=== PATIENT | female | born 1970 | race Caucasian/White ===

== ENCOUNTER 2022-02-12 21:06 | Emergency (ER) | payer MEDICAID ==
[~2022-02-12] VITALS: Ht 167.6 cm; Wt 80.7 kg
[2022-02-12 21:50] VITALS: BP 157/85
[2022-02-13] MEDS ORDERED: ACETAMINOPHEN 325 MG TAB PO ONE (00:30)
== END 2022-02-13 00:48 | disposition left against medical advice (07) ==
LOC: ER 21:07
DX: R10.32 Left lower quadrant pain (principal); R11.0 Nausea; R42 Dizziness and giddiness; Z53.21 Procedure and treatment not carried out due to patient leaving prior to being seen by health care provider

== ENCOUNTER → 2022-02-12 21:19 | Emergency (ER) | payer MEDICAID | END | disposition left against medical advice (07) | LOC: ER 21:19 | DX: R10.32 Left lower quadrant pain (principal); Z53.21 Procedure and treatment not carried out due to patient leaving prior to being seen by health care provider ==

== ENCOUNTER 2025-09-12 01:45 | Inpatient (IN) | payer MEDICAID ==
[2025-09-12] VITALS (7 sets, daily range): BP systolic 123–142; BP diastolic 69–95; PULSE 72–87; RESP 17–19; TEMP 97.9–98.2; O2SAT 92–96
[~2025-09-12] VITALS: Ht 167.6 cm; Wt 77.9 kg
--- NOTE | 2025-09-12 02:02 | ECG ---
[facility] Test Date: 2025-09-12 Test Time: 01:53:13 Pat Name: MAXINE MERCHANT Department: ED Room: [address] [place] [address] Gender: F Product Lead: PAUL : 1970 Requested By: KY MCCOY Order Number: [id number] Reading MD: Jay Benavides Measurements Intervals [place] Rate: 87 P: 75 MO: 169 QRS: 82 QRSD: 97 T: 70 QT: 363 QTc: 437 Interpretive Statements Sinus rhythm Biatrial enlargement Minimal ST depression, inferior leads Electronically Signed On 09-12-2025 15:47:19 PST by Jay Benavides Please click the below link to view image of tracing.
--- NOTE | 2025-09-12 02:34 | ED.PDOC ---
HPI Comments HPI: Poor Historian. 55-year-old female presents to emergency department for evaluation of proximally 3 hours onset of right-sided chest pain radiating to the right armpit and right scapula. Denies any fall or trauma or injuries. Pain is constant. No alleviating or precipitating factors. No other associated symptoms. Patient says she never had any cardiac evaluation ever in the past. Past Medical History: Hypertension, active tobacco abuse Past Surgical History: Cholecystectomy, hysterectomy REVIEW OF SYSTEMS: CONSTITUTIONAL: Denies acute: fever, diaphoresis, chills, generalized weakness. HEAD: Denies acute: headache, photophobia Eyes: Denies acute: Double vision, vision loss, eye pain, eye discharge. EARS: Denies acute: tinnitus, hearing loss, ear discharge, ear pain, THROAT: Denies acute: sore throat, swelling, difficulty swallowing , pain with swallowing, change in voice. NECK: Denies acute: neck pain, neck swelling, stiff neck. HEART: Denies acute : , palpitations, LUNGS: Denies acute: SOB, wheezing, cough, hemoptysis ABDOMEN: Denies acute: abdominal pain, Nausea, Vomiting, diarrhea, melena , hematemesis, hematochezia SKIN: Denies acute: rash, redness, lesions, itchiness. EXTREMITIES: Denies acute: calf pain, numbness, tingling, weakness, denies pain in extremity. Denies acute: Low back pain. Neuro: Denies acute: focal neurological deficit, motor or sensory focal neurological deficit, tremors, seizure like activity, confusion, dizziness, change in mental status, loss of bowel or bladder function, cauda equina like symptoms. : Denies acute: dysuria, hematuria, flank pain, increase in urinary frequency. PSYCH: Denies acute: hallucination, suicidal ideation, homicidal ideation. FEMALE: Denies acute: abnormal vaginal bleeding, foul odor, unusual discharge. PHYSICAL EXAM: General: ---moderate----acute distress, awake and alert. Head: normocephalic, atraumatic. No raccoon's eyes, no vasquez sign. Neck: supple, trachea is midline, no swelling. Throat: Normal phonation. Eyes:, no erythema, no purulent discharge, no proptosis, no icterus. Heart: regular rate, regular rhythm, no significant murmur appreciated. Lungs: no apparent respiratory distress, Able to speak in full sentences. No wheezing, no rhonchi, no crackles. No stridors Clear to auscultation bilaterally. Abdomen: non tender to palpation, non distended, soft, no guarding, no rebound, + bowel sounds. Neuro: Awake, Alert, oriented to name, self, situation, follows commands GCS=15. Speech is normal. Skin: no petechia, no purpura, no cyanosis, non-pale, not jaundice. Lower extremities: --no - Pitting edema no deformity, no focal swelling, no calf TTP. Makes eye contact. moves all four extremities. Face: no apparent facial droop. Ambulating in the ED independently. ED COURSE: DISCLAIMER: This medical document was created using an electronic medical record system with voice recognition software and computerized dictation system. Although this document has been carefully reviewed, there might still be some phonetic and ty pographical errors. Occasional wrong-word or "sound-alike" substitutions may have occurred due to the inherent limitations of voice recognition software. These areas are purely typographical due to imperfections of the software programs and do not reflect any compromise in the patient's medical care. Please read the chart carefully and recognize, using context, where these substitutions have occurred. Chief Complaint: Chest Pain Time Seen by MD: 02:00 Primary Care Provider: CANDELARIO Zamora Notes: Allergies Allergies: Uncoded Allergies: PENICILLIN (Allergy, Unknown, 04/20/15) Information Source: Patient Mode of Arrival: Ambulatory X-Ray, Labs, Meds, VS Vital Signs Date Time Temp Pulse Resp B/P (MAP) Pulse Ox O2 Delivery O2 Flow Rate FiO2 09/12/25 01:58 97.7 91 17 158/95 97 97.7 09/12/25 01:53 87 Departure 1 Departure Time of Disposition: 02:34 Impression: Primary Impression: Chest pain Disposition: ADMITTED INPATIENT Admit to: Tele Condition: Guarded Discharged With: Self Heart Score Heart Score: Heart Score Response (Comments) Value History Moderate Suspicious 1 EKG Normal 0 Age 45-64 1 Risk Factors 1 or 2 risk factors 1 Total 3 KY MCCOY DO Sep 12, 2025 02:34
[2025-09-12 02:48] LABS: Hematocrit 41.4 % (36.0-46.0); Hemoglobin 14.0 g/dL (12.2-16.2); Mean Corpuscular Hemoglobin 28.0 pg (28.0-32.0); Mean Corpuscular Volume 82.6 fL (80.0-100.0); Nucleated Red Blood Cells % 0.1 %
--- NOTE | 2025-09-12 02:55 | ECG ---
[facility] Test Date: 2025-09-12 Test Time: 02:54:01 Pat Name: MAXINE MERCHANT Department: ED Room: [address] [place] [address] Gender: F Vehicle Insurance Agent: FELIPA : 1970 Requested By: KY MCCOY Order Number: [id number] Reading MD: Jay Benavides Measurements Intervals [place] Rate: 85 P: 71 VA: 180 QRS: 79 QRSD: 96 T: 61 QT: 372 QTc: 443 Interpretive Statements Sinus rhythm Right atrial enlargement Minimal ST depression, inferior leads Electronically Signed On 09-12-2025 15:47:21 PST by Jay Benavides Please click the below link to view image of tracing.
[2025-09-12] MEDS: ASPirin-EC 325mg tab PO ONE (02:58)
--- NOTE | 2025-09-12 03:00 | DVH ---
CHEST RADIOGRAPH Indication: cp Technique: Single frontal view of the chest was obtained Comparison: None IMPRESSION: Heart is normal in size. Patchy airspace opacity in the right middle lobe. No sizable effusion or pneumothorax.
[2025-09-12 03:10] LABS: Alanine Aminotransferase 27 U/L (7-40); Albumin 4.2 g/dL (3.2-4.8); Anion Gap 10 (5-15); BUN/Creatinine Ratio 18.7 (10.0-20.0); Bilirubin, Total 0.3 mg/dL (0.2-1.0); Blood Urea Nitrogen 14 mg/dL (9-23); Calcium 9.1 mg/dL (8.7-10.4); Carbon Dioxide 24 mmol/L (20-31); Glucose 100 mg/dL (74-106); Potassium 3.9 mmol/L (3.5-5.1); Sodium 144 mmol/L (136-145); Total Protein 6.8 g/dL (5.7-8.2)
[2025-09-12 03:11] LABS: Alkaline Phosphatase 121 U/L (46-116); Chloride 110 mmol/L (98-107)
[2025-09-12] MEDS ORDERED: HYDROcodone-ACET 5/325MG TAB PO PRN (03:45)
[2025-09-12] MEDS ORDERED: MORPHINE SULFATE INJ 2 MG/ml SYRG IV PRN (03:45)
[2025-09-12] MEDS ORDERED: DOCUSATE SOD 100 MG CAP PO PRN (03:45)
[2025-09-12] MEDS ORDERED: NITROGLYCERIN 0.4 MG SL TAB SL PRN (03:45)
[2025-09-12] MEDS ORDERED: ONDANSETRON HCL 4 MG/2 ML VIAL IV PRN (03:45)
[2025-09-12] MEDS ORDERED: ACETAMINOPHEN 325 MG TAB PO PRN (03:45)
--- NOTE | 2025-09-12 03:55 | DVHHP2 ---
History of Present Illness Reason for Visit: Acute chest pain History of Present Illness The patient is a 55-year-old female who presented to [facility] ED with complaint of chest pain. Patient reports she has been experiencing right- sided chest pain, radiating to her right armpit, right scapular, rating 6/10 numeric scale, getting worse that prompted this visit. Patient was seen and evaluated in the ED, laboratory data shows WBC 7.7, platelets 319, sodium 141, potassium 3.9, BUN 14, creatinine 0.75, GFR 93, glucose 100, calcium 9.1, troponin 4, blood pressure 155/95, heart rate 85, temperature 97.7 F, O2 saturation 97% on room air. Chest x-ray revealing patchy airspace opacity in the right middle lobe, no sizable effusion or pneumothorax. Please see medication orders section in the computer. On my assessment, patient denied chest pain at this moment, no headache, dizziness, diaphoresis, shortness of breaths, no diarrhea, nausea, vomiting, fever, no chills. Patient was admitted for further evaluation and medical management. Past Medical History Hypertension, Active tobacco abuse Past Surgical History Cholecystectomy, Hysterectomy Family History Reviewed, noncontributory to the management of this case. Past Social History The patient lives at home, uses tobacco, denies alcohol or illicit drugs abuse. Review of Systems Constitutional: Yes: Weakness; No: Fever, Chills, Sweats, Malaise, Other Eyes: No: Pain, Vision change, Conjunctivae inflammation, Eyelid inflammation, Other, Redness ENT: No: Ear pain, Ear discharge, Nose pain, Nose discharge, Nose congestion, Mouth pain, Mouth swelling, Throat pain, Throat swelling, Other Respiratory: No: Cough, Dry, Shortness of breath, SOB with excertion, Wheezing, Hemoptysis, Pleuritic Pain, Sputum, Wheezing, Other Cardiovascular: Chest Pain; No: Palpitations, Orthopnea, Paroxysmal Noc. Dyspnea, Edema, Lt Headedness, Other Gastrointestinal: No: Nausea, Vomiting, Abdominal Pain, Diarrhea, Constipation, Melena, Hematochezia, Other Genitourinary: No Dysuria, No Frequency, No Incontinence, No Hematuria, No Retention, No Other Musculoskeletal: No: other, neck pain, shoulder pain, arm pain, back pain, hand pain, leg pain, foot pain Skin: No: Rash, Lesions, Jaundice, Bruising, Other Neurological: No: Weakness, Numbness, Incoordination, Change in speech, Confusion, Seizures, Other Allergies: Uncoded Allergies: PENICILLIN (Allergy, Unknown, 04/20/15) Exam Vital Signs Vital Signs Date Time Temp Pulse Resp B/P (MAP) Pulse Ox O2 Delivery O2 Flow Rate FiO2 09/12/25 02:54 85 09/12/25 01:58 97.7 17 158/95 97 97.7 General Appearance: Alert, Oriented X3, Cooperative, No acute distress HEENT: Atraumatic, PERRLA, EOMI, Mucous membr. moist/pink Respiratory: Normal air movement Cardiovascular: Regular rate, Normal S1, Normal S2, No murmurs Abdominal: Normal bowel sounds, Soft, No tenderness, No hepatospenomegaly, No masses Extremities: No clubbing, No cyanosis, No edema, Normal pulses, No tenderness/swelling Skin: No rashes, No significant lesion Neuro: Normal gait, Normal speech, Strength at 5/5 X4 ext, Normal tone, Sensation intact, Cranial nerves 3-12 NL, Reflexes 2+ Psych/Mental Status: Mental status NL, Mood NL Labs/Xrays Labs Test 09/12/25 03:10 09/12/25 02:22 Range/Units White Blood Count 7.7 4.4-10.8 10^3/uL Red Blood Count 5.01 4.0-5.20 10^6/uL Hemoglobin 14.0 12.2-16.2 g/dL Hematocrit 41.4 36.0-46.0 % Mean Corpuscular Volume 82.6 80.0-100.0 fL Mean Corpuscular Hemoglobin 28.0 28.0-32.0 pg Mean Corpuscular Hemoglobin Concent 33.9 32.0-36.0 g/dL Red Cell Distribution Width 13.3 11.8-14.3 % Platelet Count 319 140-450 10^3/uL Mean Platelet Volume 8.0 6.9-10.8 fL Neutrophils (%) (Auto) 48.8 37.0-80.0 % Lymphocytes (%) (Auto) 42.4 10.0-50.0 % Monocytes (%) (Auto) 5.7 0.0-12.0 % Eosinophils (%) (Auto) 2.2 0.0-7.0 % Basophils (%) (Auto) 0.9 0.0-2.0 % Neutrophils # (Auto) 3.8 1.6-8.6 10 ^3/uL Lymphocytes # (Auto) 3.3 0.4-5.4 10 ^3/uL Monocytes # (Auto) 0.4 0-1.3 10 ^3/uL Eosinophils # (Auto) 0.2 0-0.8 10 ^3/uL Basophils # (Auto) 0.1 0-0.2 10 ^3/uL Nucleated Red Blood Cells 0.1 % D-Dimer, Quantitative 0.39 0.0-0.49 mg/L FEU Sodium Level 144 136-145 mmol/L Potassium Level 3.9 3.5-5.1 mmol/L Chloride Level 110 H 98-107 mmol/L Carbon Dioxide Level 24 20-31 mmol/L Anion Gap 10 5-15 Blood Urea Nitrogen 14 9-23 mg/dL Creatinine 0.75 0.550-1.02 mg/dL Glomerular Filtration Rate Calc 93 >90 mL/min BUN/Creatinine Ratio 18.7 10.0-20.0 Serum Glucose 100 74-106 mg/dL Calcium Level 9.1 8.7-10.4 mg/dL Total Bilirubin 0.3 0.2-1.0 mg/dL Aspartate Amino Transferase (AST) 17 13-40 U/L Alanine Aminotransferase (ALT) 27 7-40 U/L Alkaline Phosphatase 121 H 46-116 U/L Total Protein 6.8 5.7-8.2 g/dL Albumin 4.2 3.2-4.8 g/dL PATIENT: MAXINE MERCHANT ACCT: [id number] UNIT: [id number] : 1970 LOC: ER ROOM / BED: / AGE / SEX: 55 / F ADM STATUS: REG ER SERVICE 0200 ORDERING PHYSICIAN: KY MCCOY DO PROCEDURE(s): CXRP - CHEST PORTABLE REASON: cp ORDER NUMBER(s): [id number], ACCESSION NUMBER(s): [id number] CHEST RADIOGRAPH Indication: cp Technique: Single frontal view of the chest was obtained Comparison: None IMPRESSION: Heart is normal in size. Patchy airspace opacity in the right middle lobe. No sizable effusion or pneumothorax. SEPSIS Sepsis Screen Date sepsis recognized/suspect: Sep 12, 2025 Time Sepsis recognized/suspect: 0203 Recent Procedure: No On Antibiotic Therapy: No (FINISHED ABX X2 DAYS AGO) Respiratory Rate >20: No Heart Rate >90: Yes Temp<36 C (96.8 F) or >38.3 C: No SBP <90 or MAP <65 mmHG: No New Acute Mental Status Change: No Is the patient on CPAP, BIPAP,: No Physician Orders Electrocardigram (09/12/25 05:01) Inventory Administrator (09/12/25 ) Chest Portable (09/12/25 02:00) Troponin-I Hs (09/12/25 03:00) Troponin-I Hs (09/12/25 05:00) Ceftriaxone 1gm/50ml (Rocephin) (09/12/25 03:30) Complete Blood Count (09/12/25 04:00) Comprehensive Metabolic Panel (09/12/25 04:00) Aspirin Tablet (09/12/25 10:00) Azithromycin 500mg/ 250ml (Zithromax 50 (09/12/25 10:00) Azithromycin 500mg/ 250ml (Zithromax 50 (09/12/25 03:45) Vital Signs Date Time Temp Pulse Resp B/P (MAP) Pulse Ox O2 Delivery O2 Flow Rate FiO2 09/12/25 02:54 85 09/12/25 01:58 97.7 91 17 158/95 97 97.7 09/12/25 01:53 87 Laboratory Tests Test 09/12/25 02:22 White Blood Count 7.7 10^3/uL (4.4-10.8) Medications Medications Dose Ordered Sig/Julien Route Start Time Stop Time Status Last Admin Dose Admin Aspirin 325 mg ONCE ONCE PO 09/12/25 02:45 09/12/25 02:46 DC 09/12/25 02:58 325 MG Assessment/Plan Assessment/Plan Acute chest pain Hypertension Pneumonia, unspecified organism Plan 1. Admit to telemetry unit 2. Breathing treatment 3. Pain control management 4. Management of fluids and electrolytes 5. Consultation for hospitalist 6. Diagnostic tests chest x-ray 7. DVT prophylaxis-on aspirin 8. Repeat labs CBC, CMP in a.m. 9. Continue with current medical management 10. Treatment plan discussed with patient and RN. Patient verbalized understanding. Plan discussed with: Patient, Other (RN) My Orders Orders - LEATHA DOBBS DNP Procedure Category Date Status Time Complete Blood Count LAB 09/12/25 Verified 04:00 Comprehensive LAB 09/12/25 Verified Metabolic Panel 04:00 Aspirin Tablet PHA 09/12/25 Verified 10:00 Azithromycin 500mg/ PHA 09/12/25 Verified 250ml (Zithromax 50 10:00 Azithromycin 500mg/ PHA 09/12/25 Verified 250ml (Zithromax 50 03:45 Problem List: (1) Acute chest pain (2) Hypertension (3) Pneumonia, unspecified organism Date of Service: Sep 12, 2025 Billing Provider: LEATHA DOBBS DNP Common Visit Codes: [id number] INP/OBS CARE (HIGH) LEATHA DOBBS DNP Sep 12, 2025 03:55
[2025-09-12] MEDS: AZITHROMYCIN 500MG/ 250ML 250 ML IV ONE (04:43)
[2025-09-12] MEDS: SODIUM CHLOR 0.9% PF (SALINE LOCK) 10ML VIAL/SYR IV SCH (04:44)
--- NOTE | 2025-09-12 04:51 | ECG ---
[facility] Test Date: 2025-09-12 Test Time: 04:50:19 Pat Name: MAXINE MERCHANT Department: ED Room: [address] [place] [address] Gender: F Land Use Planner: FELIPA : 1970 Requested By: KY MCCOY Order Number: [id number] Reading MD: Jay Benavides Measurements Intervals [place] Rate: 84 P: 72 [place]: 181 QRS: 77 QRSD: 96 T: 76 QT: 367 QTc: 434 Interpretive Statements Sinus rhythm Biatrial enlargement Minimal ST depression, inferior leads Electronically Signed On 09-12-2025 15:47:32 PST by Jay Benavides Please click the below link to view image of tracing.
[2025-09-12 05:37] LABS: Hematocrit 42.1 % (36.0-46.0); Hemoglobin 13.9 g/dL (12.2-16.2); Mean Corpuscular Hemoglobin 27.7 pg (28.0-32.0); Mean Corpuscular Volume 83.6 fL (80.0-100.0); Nucleated Red Blood Cells % 0.1 %
[2025-09-12 06:30] LABS: Alanine Aminotransferase 26 U/L (7-40); Albumin 4.2 g/dL (3.2-4.8); Anion Gap 11 (5-15); BUN/Creatinine Ratio 20.0 (10.0-20.0); Blood Urea Nitrogen 13 mg/dL (9-23); Calcium 9.1 mg/dL (8.7-10.4); Carbon Dioxide 20 mmol/L (20-31); Glucose 98 mg/dL (74-106); Total Protein 6.9 g/dL (5.7-8.2)
[2025-09-12 06:31] LABS: Bilirubin, Total 0.4 mg/dL (0.2-1.0)
[2025-09-12 06:33] LABS: Alkaline Phosphatase 117 U/L (46-116); Chloride 111 mmol/L (98-107); Potassium 3.9 mmol/L (3.5-5.1); Sodium 142 mmol/L (136-145)
[2025-09-12] MEDS ORDERED: AZITHROMYCIN 500MG/ 250ML 250 ML IV SCH (10:00)
[2025-09-12] MEDS: METOPROLOL TARTRATE 25 MG TAB PO SCH (10:29)
[2025-09-12 10:48] LABS: COVID19 ANTIGEN SOFIA FIA NEGATIVE (NEGATIVE)
--- NOTE | 2025-09-12 13:58 | DVHPNRES ---
Progress Note Date Seen: Sep 12, 2025 Resident Creating Document: MARYELLEN MASON RESIDENT Medical Necessity Reason Pt with a Central, PICC or Fol: No Subjective Review of Systems Brief history on arrival: This is a 55-year-old female with past medical history of hypertension, migraines (sumatriptan prophylaxis), nicotine dependence, GERD, presented to the ER with chief complain of right-sided chest pain since 1 day. The pain is described as sharp, retrosternal chest pain, radiating to left shoulder blades, axilla, anterior chest in right substernal area. Pain is constant, 6/10, worsening with inspiration, coughing. She also complained of chronic cough since last 3 months, characterized as dry. No acute change in characteristics of cough. She denies fever, chills, shortness of breaths, sick contact or recent travel. Patient reports positive family history of father dying from heart attack at the age of 64 years. Patient denies any similar episodes in the past. PMHx: Hypertension, migraines (sumatriptan prophylaxis), nicotine dependence, GERD PSHx: Cholecystectomy, hysterectomy Family history: Father of heart failure, history of colon cancer (father) Social history: Reports smoking from last 25 years; 22 pack per year smoking history. Reports marijuana use (last used 3 days ago). Occasional alcohol use described as once/ twice a year. Denies any other drug use. Full code Home medication: Sumatriptan, famotidine Allergic history: Penicillin ROS: Constitutional: Denies weight loss, fever and chills. HEENT: Denies changes in vision and hearing. Respiratory: Chest pain, cough Cardiovascular: Denies chest discomfort or palpitations GI: Denies abdominal pain, nausea, vomiting and diarrhea. : Denies dysuria and urinary frequency. Musculoskeletal: Denies myalgias and joint pain Skin: Denies rash and pruritus. Neurological: Denies dizziness, headache, vision or hearing problems 09/12/2025: Patient was seen at bedside today. Continues to complain of chest pain. Monitored on telemetry. Objective vital signs Vital Sign Date Time Temp Pulse Resp B/P (MAP) Pulse Ox O2 Delivery O2 Flow Rate FiO2 09/12/25 10:29 87 142/86 09/12/25 08:07 18 96 Room Air* 0 21 09/12/25 08:07 97.9 97.9 medications Current Medications Medications Dose Ordered Sig/Julien Route Start Time Stop Time Status Last Admin Dose Admin Aspirin 81 mg DAILY PO 09/12/25 10:00 Azithromycin 250 ml @ 125 mls/hr DAILY IV 09/12/25 10:00 UNV Metoprolol Tartrate 25 mg BID PO 09/12/25 10:00 09/12/25 10:29 25 MG Clonidine HCl 0.1 mg Q4HP PRN PO 09/12/25 03:45 Sodium Chloride 10 ml Q8HR IV 09/12/25 06:00 09/12/25 04:44 10 ML Ondansetron HCl 4 mg Q4HP PRN IV 09/12/25 03:45 Docusate Sodium 100 mg BIDPRN PRN PO 09/12/25 03:45 Acetaminophen 650 mg Q6HP PRN PO 09/12/25 03:45 Nitroglycerin 0.4 mg Q5MINP PRN SL 09/12/25 03:45 Morphine Sulfate 2 mg Q30M PRN IV 09/12/25 03:45 Azithromycin 250 ml @ 125 mls/hr DAILY IV 09/13/25 10:00 Ceftriaxone Sodium 50 ml @ 100 mls/hr DAILY@0400 IV 09/13/25 04:00 Ibuprofen 400 mg Q8HP PRN PO 09/12/25 12:15 Pantoprazole Sodium 40 mg DAILY IV 09/13/25 10:00 Examination General: Patient alert and oriented in person, place and time. Patient following commands. HEENT: Normocephalic, atraumatic, moist mucous membranes Respiratory/pulmonary: Chest wall tenderness more pronounced in posterior right side of chest and axilla. Clear breath sounds. Cardiovascular: Normal heart sounds S1 and S2 with no associated murmurs Abdomen: Abdomen nondistended, there is no pain to palpation in any of the abdominal quadrants, no palpable masses. Extremities: There is no peripheral edema present at the lower extremities. Peripheral Pulses: 3+ Radial (R). 3+ Radial (L). 3+ Dorsalis pedis (R). 3+ Dorsalis pedis(L) Skin: No rashes or pruritus, there is no sacral edema present at this time. Neurological: Intact cranial nerves with no focal neurologic deficits laboratory and microbiology Laboratory Tests 09/12/25 05:19 Test 11/14/25 05:19 Range/Units Serum Glucose 98 74-106 mg/dL Problem List/Assessment/Plan Problem List/Assessment/Plan Community-acquired pneumonia, due to Gram-negative/Gram-positive bacteria Chronic cough Pleuritic chest pain due to above Musculoskeletal chest pain, likely possible CXR was done showing right middle lobe opacity Influenza, COVID serology negative. MRSA screen pending Supportive management with pain medications, Zofran IV ceftriaxone 1 g, IV azithromycin 500 mg daily Trial of ibuprofen Chest pain, rule out ACS Hypertension EKG shows sinus rhythm Troponins WNL Monitor on telemetry for life-threatening arrhythmias Migraines on sumatriptan prophylaxis Continue clinical monitoring Holding of sumatriptan while ruling out ACS Nicotine dependence Counseled on cessation for more than 12 minutes, nicotine patch offered GERD without alarm features Protonix 40mg q.d. DIET: Cardiac DVT PROPHYLAXIS: Ambulating GI PROPHYLAXIS: Protonix CODE STATUS: Goals of care discussed with patient at bedside for more than 28 minutes. Full code DISPOSITION: Telemetry This medical document was created using an electronic medical record system with [employer] direct computerized dictation system. Although this document has been carefully reviewed, there may still be some phonetic and typographical errors. These areas are purely typographical due to imperfections of the software programs, and do not reflect any compromise in the patient's medical care. Patient's status and plan discussed with the patient. Case discussed with Dr. Portillo Plan discussed with: Patient, Other (Nurses) My Orders My Orders Orders - MARYELLEN MASON Procedure Category Date Status Time Mrsa Screen JADYN 09/12/25 Uncollected 06:59 Urinalysis LAB 09/12/25 Logged 07:04 Ceftriaxone 1gm/50ml PHA 09/13/25 In Process (Rocephin) 04:00 Date of Service: Sep 12, 2025 Billing Provider: CHANTAL PORTILLO MD Common Visit Codes: [id number] INP/OBS CARE(HIGH) MARYELLEN MASON RESIDENT Sep 12, 2025 13:57 CHANTAL PORTILLO MD Sep 12, 2025 23:47
[2025-09-12] MEDS ORDERED: NICOTINE 7MG/24HR TOPICAL PATCH TD ONE (14:00)
[2025-09-12] MEDS: IBUPROFEN 400 MG TAB PO PRN (23:14)
[2025-09-13 00:38] VITALS: BP 121/72; PULSE 66; RESP 17; TEMP 98.7; O2SAT 97
[2025-09-13 05:20] VITALS: BP 119/84; PULSE 59; RESP 18; TEMP 98.2; O2SAT 95
[2025-09-13 05:59] LABS: Hematocrit 38.6 % (36.0-46.0); Hemoglobin 13.2 g/dL (12.2-16.2); Mean Corpuscular Hemoglobin 28.3 pg (28.0-32.0); Mean Corpuscular Volume 82.9 fL (80.0-100.0); Nucleated Red Blood Cells % 0.1 %
[2025-09-13 06:13] LABS: Potassium 3.8 mmol/L (3.5-5.1); Sodium 142 mmol/L (136-145)
[2025-09-13 06:14] LABS: Anion Gap 10 (5-15); Carbon Dioxide 23 mmol/L (20-31)
[2025-09-13 06:15] LABS: Calcium 8.9 mg/dL (8.7-10.4)
[2025-09-13 06:17] LABS: Chloride 109 mmol/L (98-107)
[2025-09-13 06:19] LABS: Glucose 103 mg/dL (74-106)
[2025-09-13 06:20] LABS: BUN/Creatinine Ratio 24.0 (10.0-20.0); Blood Urea Nitrogen 18 mg/dL (9-23)
[2025-09-13 08:00] VITALS: RESP 16
[2025-09-13 08:57] VITALS: BP 132/90; PULSE 61; RESP 16; TEMP 98.2; O2SAT 91
[2025-09-13] MEDS: NICOTINE 7MG/24HR TOPICAL PATCH TD SCH (10:00)
[2025-09-13] MEDS: AZITHROMYCIN 500MG/ 250ML 250 ML IV SCH (10:55)
[2025-09-13] MEDS: PANTOPRAZOLE 40 MG/10 ML VIAL INJ IV SCH (10:57)
[2025-09-13 13:00] VITALS: BP 116/83; PULSE 60; RESP 17; TEMP 97.9; O2SAT 93
--- NOTE | 2025-09-13 14:34 | DVHDS2 ---
Discharge Summary Date of Admission Sep 12, 2025 at 03:32 Date of Discharge: Sep 13, 2025 Admitting Diagnosis Community-acquired pneumonia, due to Gram-negative/Gram-positive bacteria Chronic cough Pleuritic chest pain due to above Musculoskeletal chest pain, likely possible Chest pain, rule out ACS Hypertension Migraines Nicotine dependence GERD Labs/Diagnostic Data: Laboratory Results Test 09/13/25 05:34 09/12/25 10:10 09/12/25 05:19 09/12/25 02:22 White Blood Count 8.4 10^3/uL (4.4-10.8) Red Blood Count 4.66 10^6/uL (4.0-5.20) Hemoglobin 13.2 g/dL (12.2-16.2) Hematocrit 38.6 % (36.0-46.0) Mean Corpuscular Volume 82.9 fL (80.0-100.0) Mean Corpuscular Hemoglobin 28.3 pg (28.0-32.0) Mean Corpuscular Hemoglobin Concent 34.1 g/dL (32.0-36.0) Red Cell Distribution Width 13.4 % (11.8-14.3) Platelet Count 309 10^3/uL (140-450) Mean Platelet Volume 7.7 fL (6.9-10.8) Neutrophils (%) (Auto) 50.1 % (37.0-80.0) Lymphocytes (%) (Auto) 40.3 % (10.0-50.0) Monocytes (%) (Auto) 7.2 % (0.0-12.0) Eosinophils (%) (Auto) 1.9 % (0.0-7.0) Basophils (%) (Auto) 0.5 % (0.0-2.0) Neutrophils # (Auto) 4.2 10 ^3/uL (1.6-8.6) Lymphocytes # (Auto) 3.4 10 ^3/uL (0.4-5.4) Monocytes # (Auto) 0.6 10 ^3/uL (0-1.3) Eosinophils # (Auto) 0.2 10 ^3/uL (0-0.8) Basophils # (Auto) 0 10 ^3/uL (0-0.2) Nucleated Red Blood Cells 0.1 % Sodium Level 142 mmol/L (136-145) Potassium Level 3.8 mmol/L (3.5-5.1) Chloride Level 109 mmol/L (98-107) Carbon Dioxide Level 23 mmol/L (20-31) Anion Gap 10 (5-15) Blood Urea Nitrogen 18 mg/dL (9-23) Creatinine 0.75 mg/dL (0.550-1.02) Glomerular Filtration Rate Calc 93 mL/min (>90) BUN/Creatinine Ratio 24.0 (10.0-20.0) Serum Glucose 103 mg/dL (74-106) Calcium Level 8.9 mg/dL (8.7-10.4) Influenza Type A Antigen Negative (Negative) Influenza Type B Antigen Negative (Negative) SARS-CoV-2 Antigen (Rapid) Negative (NEGATIVE) Total Bilirubin 0.4 mg/dL (0.2-1.0) Aspartate Amino Transferase (AST) 18 U/L (13-40) Alanine Aminotransferase (ALT) 26 U/L (7-40) Alkaline Phosphatase 117 U/L (46-116) Troponin I High Sensitivity 5 ng/L (</=34) Total Protein 6.9 g/dL (5.7-8.2) Albumin 4.2 g/dL (3.2-4.8) D-Dimer, Quantitative 0.39 mg/L FEU (0.0-0.49) Other Laboratory Tests 09/13/25 05:34 Brief Hx & Hospital Course: This is a 55 years old female came to emergency department because of chest pain and shortness for breath. The patient has been experiencing right-sided chest pain radiating to her right armpit and right scapular. The patient was found to have patchy airspace opacity on the right middle lobe. No fever or chill. The patient was admitted for community-acquired pneumonia with Gram-positive/Gram-negative bacteria. The patient had constant worsening cough. She had a cough for three months. Patient was given Rocephin and Zithromax IV. The patient was given nebulizer. Culture showed no growth. The patient is still continuing to need medical attention for her pneumonia however she grew inpatient and decided to leave against medical advice. The patient verbally understand without full treatment her pneumonia can be lingering and she can have more infection, even with sepsis or however patient is still wished to leave against medical advice. Physical Exam prior to leaving against medical advice show: HEENT: Normocephalic atraumatic pupils equal react to light and accommodation. Extraocular muscles intact, conjunctiva pink, oropharynx moist, no thrush, no exudate. Lymphatic: No lymphadenopathy Cardiovascular exam: S1, S2 was heard. No murmurs, rubs, gallops Lung: Clear on auscultation bilaterally, no wheeze, rale, rhonchi. GI: Abdominal soft, nondistended, nontenderness, positive bowel sounds. Extremity: No crepitus, cyanosis, edema. Pedal pulses present bilateral. Full range of motion. Skin: Normal turgor, no rash. Psych: Alert, oriented x3. Neurology: No focal deficits, cranial nerve II to XII grossly intact. This medical document was created using an electronic medical record system with [employer] direct computerized dictation system. Although this document has been carefully reviewed, there may still be some phonetic and typographical errors. These areas are purely typographical due to imperfections of the software programs, and do not reflect any compromise in the patient's medical care. Condition at Discharge: Guarded Final Diagnosis/Problems List Community-acquired pneumonia, due to Gram-negative/Gram-positive bacteria Chronic cough Pleuritic chest pain due to above Musculoskeletal chest pain, likely possible Chest pain, rule out ACS Hypertension Migraines Nicotine dependence GERD Discharge Disposition: AMA Discharge Statement: "Patient was advised to return to the ER or call 911 if any headaches, dizziness, shortness of breath, chest pain, abdominal pain, bleeding, fevers, or worsening of medical condition. Patient was counseled about treatment plan, medications, possible side effects, patientverbalized understanding. All questions were answered to the best of my ability. This discharge took greater then 30 minutes in planning, reviewing documentation, counseling the patient, and discussing with other team members." ASSESSMENT ASSESSMENT Assessment Date of Service: Sep 13, 2025 Billing Provider: CHANTAL HENSON MD Common Visit Codes: 04788-GIH/OBS DISCH DAY >30min CHANTAL HENSON MD Sep 13, 2025 14:34
--- NOTE | 2025-09-13 14:35 | DVHPN2 ---
Eyes: No Pain, No Vision change, No Conjunctivae inflammation, No Eyelid inflammation, No Other, No Redness ENT: No Ear pain, No Ear discharge, No Nose pain, No Nose discharge, No Nose congestion, No Mouth pain, No Mouth swelling, No Throat pain, No Throat swelling, No Other Cardiovascular: Chest Pain; No Palpitations, No Orthopnea, No Paroxysmal Noc. Dyspnea, No Edema, No Lt Headedness, No Other Respiratory: No Cough, No Dry, No Shortness of breath, No SOB with excertion, No Wheezing, No Hemoptysis, No Pleuritic Pain, No Sputum, No Other Gastrointestinal: No Nausea, No Vomiting, No Abdominal Pain, No Diarrhea, No Constipation, No Melena, No Hematochezia, No Other Genitourinary: No Dysuria, No Frequency, No Incontinence, No Hematuria, No Retention, No Other Musculoskeletal: No other, No neck pain, No shoulder pain, No arm pain, No back pain, No hand pain, No leg pain, No foot pain Skin: No Rash, No Lesions, No Jaundice, No Bruising, No Other Objective Vitals Vital Signs Date Time Temp Pulse Resp B/P (MAP) Pulse Ox O2 Delivery O2 Flow Rate FiO2 09/13/25 13:00 97.9 60 17 116/83 (94) 93 97.9 09/13/25 08:00 Room Air* 0 21 Intake/Output Intake and Output 09/13/25 07:00 Intake Total 1350 ml Balance 1350 ml Intake Oral 1300 ml IV Total 50 ml # Voids 3 Medications Current Medications Medications Dose Ordered Sig/Julien Route Start Time Stop Time Status Last Admin Dose Admin Aspirin 81 mg DAILY PO 09/12/25 10:00 09/13/25 10:55 81 MG Azithromycin 250 ml @ 125 mls/hr DAILY IV 09/12/25 10:00 UNV Metoprolol Tartrate 25 mg BID PO 09/12/25 10:00 09/13/25 10:57 25 MG Clonidine HCl 0.1 mg Q4HP PRN PO 09/12/25 03:45 Sodium Chloride 10 ml Q8HR IV 09/12/25 06:00 09/13/25 06:00 10 ML Ondansetron HCl 4 mg Q4HP PRN IV 09/12/25 03:45 Docusate Sodium 100 mg BIDPRN PRN PO 09/12/25 03:45 Acetaminophen 650 mg Q6HP PRN PO 09/12/25 03:45 Nitroglycerin 0.4 mg Q5MINP PRN SL 09/12/25 03:45 Morphine Sulfate 2 mg Q30M PRN IV 09/12/25 03:45 Azithromycin 250 ml @ 125 mls/hr DAILY IV 09/13/25 10:00 09/13/25 10:55 125 MLS/HR Ceftriaxone Sodium 50 ml @ 100 mls/hr DAILY@0400 IV 09/13/25 04:00 09/13/25 03:30 100 MLS/HR Ibuprofen 400 mg Q8HP PRN PO 09/12/25 12:15 09/12/25 23:14 400 MG Pantoprazole Sodium 40 mg DAILY IV 09/13/25 10:00 09/13/25 10:57 40 MG Nicotine 1 patch DAILY TD 09/13/25 10:00 09/13/25 10:00 1 PATCH Laboratory Results Laboratory Tests 09/13/25 05:34 Chemistry Test 09/13/25 05:34 Calcium Level 8.9 mg/dL (8.7-10.4) CHANTAL HENSON MD Sep 13, 2025 14:35
== END 2025-09-13 14:00 | disposition left against medical advice (07) | DRG 137 ==
LOC: ER 01:45 → OVERFLOW 03:32 → TELE-EAST 22:39
PROVIDERS: ADMIT Internal Medicine; ATTEND Internal Medicine
DX: J15.69 Pneumonia due to other Gram-negative bacteria (principal); I24.9 Acute ischemic heart disease, unspecified; J15.9 Unspecified bacterial pneumonia; I10 Essential (primary) hypertension; F17.200 Nicotine dependence, unspecified, uncomplicated; G43.909 Migraine, unspecified, not intractable, without status migrainosus; K21.9 Gastro-esophageal reflux disease without esophagitis; Z20.822 Contact with and (suspected) exposure to COVID-19; Z53.29 Procedure and treatment not carried out because of patient's decision for other reasons; Z90.710 Acquired absence of both cervix and uterus; Z90.49 Acquired absence of other specified parts of digestive tract; Z88.0 Allergy status to penicillin; Z85.038 Personal history of other malignant neoplasm of large intestine; Z63.4 Disappearance and death of family member; Z82.49 Family history of ischemic heart disease and other diseases of the circulatory system; Z71.6 Tobacco abuse counseling
CPT/HCPCS: 36415; 71045; 80048; 80053; 84484; 85025; 85379; 87426; 87804; 93005; G0378; J2470